=== PATIENT | male | born 1935 | race Caucasian/White ===

== ENCOUNTER 2019-01-23 09:53 | Outpatient (CLI) | payer MEDICARE ==
--- NOTE | 2019-01-23 11:21 | ULT ---
Bilateral renal ultrasound: HISTORY: Hematuria FINDINGS: The right kidney measures 11.7 cm in length and the left kidney measures 10.1 cm in length. There is a 1.8 cm cyst in the right kidney and a 1.1 cm cyst in the left kidney. The right cyst appears to represent a parapelvic cyst. No hydronephrosis is seen on either side. There is irregularity of the b ladder wall. IMPRESSION: 1. Bilateral renal cysts 2. Irregular bladder wall. Further evaluation with cystoscopy is recommended.
== END 2019-01-23 09:54 | disposition home or self-care (01) ==
LOC: BICULT 09:53
PROVIDERS: ATTEND Specialist
DX: R31.9 Hematuria, unspecified (principal); N28.1 Cyst of kidney, acquired; N32.89 Other specified disorders of bladder
CPT/HCPCS: 76770

== ENCOUNTER 2019-04-05 09:02 | Outpatient (CLI) | payer MEDICARE ==
[2019-04-05] MEDS ORDERED: Iopamidol 370 76% 100 ML VIAL ONE (10:49)
--- NOTE | 2019-04-05 11:52 | CT ---
CT ABDOMEN AND PELVIS WITH AND WITHOUT CONTRAST: Axial tomograms were obtained without IV enhancement. Postcontrast images were obtained with Iv enha ncement in portal venous phase and delayed venous phase. INDICATION: Malignant neoplasm of prostate. Hematuria. COMPARISON: Comparison is made to a prior CT abdomen and pelvis from 2002. FINDINGS: Review of the noncontrast CT shows a focal density in the left mid collecting structures which may re present a tiny calculus. The density, however, is less than expected for calcification. No other de finite urinary tract calculus. No hydronephrosis. Review of the urinary tract on postcontrast images shows a parapelvic cyst on the right measuring tiffani roximately 1.8 cm. Tiny cortical cyst anterior left kidney measures approximately 1 cm. There is an other 1 cm cortical cyst in the mid left renal cortex. There is a small exophytic cyst from the infe rior left kidney measuring 1.2 cm. There is an exophytic cyst from the inferior pole right kidney me asuring 1.2 cm. No enhancing renal mass identified. No hydronephrosis. Urinary bladder has irregular contour. Mild bladder wall thickening. Possible small diverticulum fr om the anterior superior bladder wall just to the left of midline. Prostate is mildly prominent and indenting the floor of the bladder. Seminal vesicles are prominent. The lung bases are clear. A small hepatic cyst in the mid right lobe of liver measuring approximately 1 cm is stable. Post cho lecystectomy changes. Spleen and pancreas unremarkable. Adrenal glands normal. Small bowel loops normal caliber. Prominent stool throughout the colon. Diverticulosis of the sigmoid. Aorta is calcified and tortuous. No aneurysmal dilatation. No adenopathy apparent. There is an anterior abdominal wall hernia in the midline of the upper abdomen which is new from the prior study of 2002. Anterior abdominal wall defect measures 2.6 cm width. A hernia sac in the subc utaneous tissues contain mesenteric fat measures 8 cm width in the axial plane. 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 There appears to be fusion at L2-3 with scoliotic curvature. IMPRESSION: 1. There are bilateral renal cystic lesions as described as described. Question small calculus in t he upper pole collecting structures of the left kidney. 2. Urinary bladder has irregularly shaped mild bladder wall thickening and small diverticulum as kiara cribed. 3. Small hepatic cyst. 4. Anterior abdominal wall hernia. 5. 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 POS: LEVI
--- NOTE | 2019-04-05 14:05 | NM ---
BONE SCAN: 04/05/19 Patient is given 31 millicuries of technetium MDP IV. Whole body skeletal images obtained. HISTORY: Prostate cancer. No comparison studies. There is abnormal patchy uptake in the lumbar spine with scoliotic curvature of the lumbar spine. Comparison made to today's CT scan which shows moderate to severe degenerative changes of the lumbar spine with partial fusion at L3-4. The activity seen on bone scan would correspond to this prominent degenerative change. No other abnormal osseous activity. IMPRESSION: There is abnormal areas of patchy activity throughout the lumbar spine most consistent with degenerat yeny change as noted on today's CT. POS: LEVI
== END 2019-04-05 09:03 | disposition home or self-care (01) ==
LOC: CT 09:02
PROVIDERS: ATTEND Urology
DX: C61 Malignant neoplasm of prostate (principal); N32.89 Other specified disorders of bladder; K76.89 Other specified diseases of liver; M48.061 Spinal stenosis, lumbar region without neurogenic claudication; M85.88 Other specified disorders of bone density and structure, other site
CPT/HCPCS: 74178; 78306; 82565; A9503; Q9967

== ENCOUNTER 2019-11-22 09:22 | Outpatient (CLI) | payer MEDICARE ==
[2019-11-22 11:47] LABS: INR-International Normal Ratio 0.9; Prothrombin Time 12.2 SEC (12.0-14.7)
[2019-11-22 11:48] LABS: PTT 28.5 SEC (22.9-36.1)
[2019-11-22 11:54] LABS: Bacteria/HPF None Seen HPF (None Seen); Bilirubin Negative (Negative); Blood, Urine 3+ (Negative); Clarity Clear (Clear); Glucose, Urine (Dipstick) Normal (Negative); Leukocyte Negative Leu/uL (Negative); Nitrite Negative (Negative); Protein, Urine (Dipstick) 20 mg/dL (Neg-Trace); RBC/HPF Greater than 50 HPF (0-3); Squamous Epithelial None Seen HPF (0-3); WBC/HPF 0-3 HPF (0-3)
[2019-11-22 11:56] LABS: Hemoglobin 12.7 g/dL (14.0-18.0); Mean Corpuscular HGB CONC 32.9 g/dL (32.0-36.0); Mean Platelet Volume 7.5 fL (7.4-10.4); Platelet Count 333 thou/uL (130-400); RBC Distribution Width 12.4 % (11.5-14.5); Red Blood Cell (RBC) Count 3.63 mill/uL (4.70-6.10); White Blood Cell (WBC) Count 6.1 thou/uL (4.8-10.8)
[2019-11-22 12:03] LABS: Anion Gap 11 mmol/L (10-20); BUN (Urea Nitrogen) 14 mg/dL (8.4-25.7); Calc. Creatinine Clearance 0 mL/min (70-130); Calcium 9.1 mg/dL (7.8-10.44); Carbon Dioxide 30 mmol/L (23-31); Chloride 102 mmol/L (98-107); Estimated GFR-MDRD 80; Glucose 124 mg/dL (83-110); Potassium 4.1 mmol/L (3.5-5.1); Sodium 139 mmol/L (136-145)
== END 2019-11-22 09:23 | disposition home or self-care (01) ==
LOC: LABBT 09:22
PROVIDERS: ATTEND Urology
DX: Z01.812 Encounter for preprocedural laboratory examination (principal); C61 Malignant neoplasm of prostate; M81.0 Age-related osteoporosis without current pathological fracture; R82.89 Other abnormal findings on cytological and histological examination of urine; N30.40 Irradiation cystitis without hematuria; R31.0 Gross hematuria
CPT/HCPCS: 80048; 81001; 85027; 85610; 85730; 87086

== ENCOUNTER 2019-11-30 06:43 | Day surgery (SDC) | payer MEDICARE ==
[2019-11-22 10:57] VITALS: BMI 22.5
[2019-11-30] MEDS ORDERED: Levofloxacin 500 mg/D5W 100 ml Premix Bag ONE (07:53)
[2019-11-30] MEDS ORDERED: Iothalamate Meglumine 60% 50 ML VIAL FS ONE (09:54)
[2019-11-30] MEDS ORDERED: Fentanyl 100 MCG/2 ML VIAL ONE (09:57)
[2019-11-30] MEDS ORDERED: SUGAMMADEX SODIUM 200 MG/2 ML VIAL ONE (10:06)
[2019-11-30] MEDS ORDERED: Glycopyrrolate 0.2 MG/ML 5 ML SYRINGE ONE (10:33)
[2019-11-30] MEDS ORDERED: PROPOFOL 200 MG/20 ML VIAL ONE (10:33)
[2019-11-30] MEDS ORDERED: Rocuronium Bromide 10 MG/ML (10ML VIAL) ONE (10:33)
[2019-11-30] MEDS ORDERED: Ondansetron PF 4 MG/2 ML Vial ONE (10:33)
[2019-11-30] MEDS ORDERED: Lidocaine 1% PF 5 ML VIAL ONE (10:33)
--- NOTE | 2019-11-30 11:24 | RAD ---
Retrograde Polygram: HISTORY: Bilateral stents, bladder cancer FINDINGS: The left ureter is injected initially with multiple filling defects which appear to represent air fiorella bles. Follow-up delayed injection demonstrates one persistent filling defect in the distal ureter. On the right side there is some dilatation of the right ureter from the upper midportion down to near the ureterovesicular junction with 2 separate ureteral moieties beginning at approximately L3. Right ureteral stent left in place. IMPRESSION: 2 partial right sided ureteral moieties superiorly with minimal dilatation of the mid and distal righ t ureter. Some filling defects in the left renal upper collecting system and ureter possibly air bubbles.
--- NOTE | 2019-11-30 11:55 | OP ---
DATE OF PROCEDURE: 11/30/2019 SERVICE: Urology. 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 POSTOPERATIVE DIAGNOSES: 1. 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 INDICATIONS FOR PROCEDURE: Mr. Randall is an 84-year-old white male who initially presented to me for hematuria. He did have a small mass at the opening of the right ureteral orifice with concerns for a possible early bladder cancer. I had recommended we resect this and stent the right ureter with bilateral retrograde pyelograms to evaluate his upper tracts at the time of the surgery. Risks and benefits of surgery were discussed and he has agreed to proceed forward. DESCRIPTION OF PROCEDURE: After identification of armband and verification of consent, the patient was brought back to the operating room where he underwent general anesthesia with endotracheal intubation. He was then placed in a dorsal lithotomy position and prepped and draped in the usual sterile fashion. After appropriate time-out, a lubricated 22-Syrian rigid cystoscope was introduced per urethra into the bladder. A full cystoscopy was performed, which demonstrated a trabeculated bladder with a mass at the right ureteral orifice, which was approximately 2 to 3 mm in size. No other lesions or masses were noted. Both ureters were in the orthotopic location otherwise. The left ureteral orifice was originally cannulated with a 5-Syrian Pollack catheter with the assistance of a 0.035 Sensor wire to guide the Pollack catheter in. A retrograde pyelogram was performed, which demonstrated a normal caliber left ureter and no filling defects within the renal pelvis. However, there was a persistent filling defect in the distal ureter. I suspected this was likely air bubbles and I watched this area for a while. However, the filling defect persisted. I elected to come back and perform a repeat retrograde on this side after we dealt with the right side, so the Pollack catheter was removed. The Sensor wire was then used to guide the Pollack catheter in on the right ureteral orifice and a retrograde pyelogram performed, which demonstrated a dilated distal right ureter, which then forked in a Y into a proximal duplicated system, both which the upper and lower pole moieties did not demonstrate any evidence of hydronephrosis or caliectasis. I suspect that the distal ureter was more dilated, probably from having both ureters convergent to a larger diameter ureter or there was a possibility for mild obstruction from the tumor at the distal ureteral orifice. The Pollack catheter was then removed and the cystoscope was switched out for a 26-Syrian resectoscope, which was brought in with the visual obturator. The visual obturator switched out for the bipolar resectoscope bladder loop. The tumor and right UO were resected and sent off for routine pathologic evaluation. Pinpoint cautery was then performed to try and cauterize a minor bleeding vessel that was adjacent to the ureteral orifice. The resectoscope was then removed and the 22-Syrian rigid cystoscope was brought back in. The right ureteral orifice was cannulated with a 0.035 Sensor wire up to the level of the renal pelvis in the upper pole moiety. A 6 x 26 double-J stent was advanced over the Sensor wire up to the level of the upper moiety and then the wire removed, leaving a good curl in the bladder and a partial curl within the upper pole moiety of the kidney. There was minimal bleeding noted at the resection bed on the right ureter. I satisfied that the tumor was removed from the right. Attention was turned back to the left side, which another retrograde pyelogram was performed with a 5-Syrian Pollack catheter. This demonstrated that the filling defect was again persist in the same location; however, did appear to move with the retrograde, indicating these were likely air bubbles. However, I became concerned that this was possibly a mobile polyp or a polypoid type tumor that could give a false appearance of movement. Therefore, I elected to go ahead and proceed with ureteroscopy to evaluate this area. A Sensor wire was advanced through the left ureteral orifice up to the level of the kidney and then the Pollack catheter removed. The cystoscope was then also removed and the Sensor wire affixed to the drapes as a safety wire. A semi-rigid ureteroscope was brought in alongside the sensor wire into the bladder and an Amplatz Super Stiff wire was then used to cannulate the distal ureter in order to guide the ureteroscope into the distal ureter. Ureteroscopy was carried out until the mid ureter and the entire ureter mucosa was evaluated both on the way in and on the way out and no tumor was identified. There was an air bubble trapped between 2 concentric folds within the urothelial mucosa, which is likely what was visualized as the filling defect. I satisfied this was just an air bubble and there were no mucosal abnormality consistent with cancer. The ureteroscope was withdrawn. Since the ureter had become dilated at the ureteral orifice, I did elect to leave a stent in the same side to avoid stricturing, spasms, edema, or pain postoperatively. The cystoscope was back-loaded over the Sensor wire back into the bladder and a 6 x 26 double-J stent was advanced on this side up to the level of renal pelvis. The wire was removed, leaving a good curl in the bladder and a partial curl in the kidney. The bladder was then drained and the cystoscope was removed after evaluating the right resection bed again, at which point no bleeding was noted there either. The cystoscope was then completely removed after the bladder was drained. The patient was then taken out of positioning, awakened, and taken to PACU for recovery in stable condition. COMPLICATIONS: None. ESTIMATED BLOOD LOSS: Minimal. RETAINED TUBES AND DRAINS: Bilateral 6 x 26 double-J stents. SPECIMENS: Right ureteral orifice with bladder tumor. DISPOSITION: The patient will be discharged home and follow up with me in approximately 2 weeks for a cystoscopy and bilateral stent removal, at which point we will then go over his pathology and discuss followup care thereafter. Job ID: [id number]
[2019-11-30] MEDS ORDERED: Oxybutynin 5 MG TAB ONE (13:30)
[2019-11-30] MEDS ORDERED: B & O ONE (13:38)
[2019-11-30] MEDS ORDERED: HYDROcodone/Acetaminophen 5/325 mg Tablet ONE (15:10)
--- NOTE | 2019-12-04 06:13 | PQF ---
[facility] POST DISCHARGE CLINICAL DOCUMENTATION IMPROVEMENT CLARIFICATION FORM l Todays Date: 12/01/19 l Patients Name BRODERICK HAYWOOD l l Admit Date 11/30/19 l Disch Date 11/30/19 Angular Developer Name Bipin Redmond Email: [email or web address] Cell: [phone] To be completed by Angular Developer: Present Clinical Indicators - Signs / Symptoms Results and Location in Medical Record [ ] Documentation of: [ ] [ ] Documentation of: [ ] [ ] Documentation of: [ ] [ ] Documentation of: [ ] [ ] Risks [ ] [ ] [ ] Treatment [ ] Bladder tumor right ureteral orrifice Query for size of excised right bladder tumor [ ] [ ] To be completed by Physician: RELL SOTELO The documentation in this patients record requires clarification to ensure coding compliance and accuracy. Check the appropriate box and include in your discharge summary. [ ] [X ] __This is already specified in the OP note. 2-3 mm [ ] [ ] Please check this box if this does not apply to this patient [ ] Unable to determine [ ] Other diagnosis: Review the following information and exercise your independent professional judgment in responding to the clarification. Based upon the clinical findings, risk factors, and treatment, please clarify if you are treating one of the above probable or suspected diagnoses. Physician Signature: ____Rell Conde____ Date__12/07/19___ Time__18:38_ MTDD
== END 2019-11-30 16:17 | disposition home or self-care (01) ==
LOC: SDC 06:43
PROVIDERS: ATTEND Urology
PROC: 0TBB8ZZ Excision of Bladder, Via Natural or Artificial Opening Endoscopic (ICD-10-PCS; principal; 2019-11-30)
PROC: BT141ZZ Fluoroscopy of Kidneys, Ureters and Bladder using Low Osmolar Contrast (ICD-10-PCS; 2019-11-30)
PROC: 0T768DZ Dilation of Right Ureter with Intraluminal Device, Via Natural or Artificial Opening Endoscopic (ICD-10-PCS; 2019-11-30)
DX: N32.89 Other specified disorders of bladder (principal); Q62.5 Duplication of ureter; N30.41 Irradiation cystitis with hematuria; C61 Malignant neoplasm of prostate; I10 Essential (primary) hypertension; E78.00 Pure hypercholesterolemia, unspecified; F17.210 Nicotine dependence, cigarettes, uncomplicated; M81.0 Age-related osteoporosis without current pathological fracture; Z79.82 Long term (current) use of aspirin; Z79.899 Other long term (current) drug therapy; Z95.0 Presence of cardiac pacemaker
CPT/HCPCS: 51798; 52005; 52224; 52332; 74420; 88305; C1758; C1769; J1956; J2001; J2405; J2704; J3010; J7620

== ENCOUNTER 2019-12-25 11:37 | Day surgery (SDC) | payer MEDICARE ==
[~2019-12-25 11:37] MED LIST: Glycopyrrolate 0.2 MG/ML 5 ML SYRINGE ONE; Lidocaine 1% PF 5 ML VIAL ONE; Ondansetron PF 4 MG/2 ML Vial ONE; PROPOFOL 200 MG/20 ML VIAL ONE; Rocuronium Bromide 10 MG/ML (10ML VIAL) ONE; Succinylcholine Chloride 20 MG/ML 10 ml SYRINGE FS ONE
[2019-12-25] MEDS ORDERED: Midazolam HCl 2 mg/2 ml Vial ONE (11:56)
[2019-12-25] MEDS ORDERED: Fentanyl 100 MCG/2 ML VIAL ONE ×2 (11:56→13:50)
[2019-12-25] MEDS ORDERED: cefTRIAXone\\ROCEPHIN 1 GM VIAL ONE (12:09)
[2019-12-25] MEDS ORDERED: Sodium Chloride 0.9% 100 ML ONE (12:09)
[2019-12-25] MEDS ORDERED: B & O ONE (12:24)
[2019-12-25 12:41] LABS: #Basophils 0.1 thou/uL (0.0-0.2); #Eosinphils 0.1 thou/uL (0.0-0.7); #Monocytes 0.8 thou/uL (0.11-0.59); #Neutrophils 8.7 thou/uL (1.40-6.50); %Basophils 0.5 % (0.0-1.0); %Eosinophils 0.8 % (0.0-10.0); %Lymphocytes 9.6 % (21.0-51.0); %Monocytes 7.2 % (0.0-10.0); %Neutrophils 81.9 % (42.0-75.0); Hemoglobin 9.4 g/dL (14.0-18.0); Mean Corpuscular HGB CONC 32.8 g/dL (32.0-36.0); Mean Corpuscular Hemoglobin 33.9 pg (27.0-31.0); Mean Platelet Volume 6.1 fL (7.4-10.4); Platelet Count 442 thou/uL (130-400); RBC Distribution Width 11.9 % (11.5-14.5); Red Blood Cell (RBC) Count 2.77 mill/uL (4.70-6.10); White Blood Cell (WBC) Count 10.6 thou/uL (4.8-10.8)
[2019-12-25 12:50] LABS: INR-International Normal Ratio 0.9; PTT 24.1 SEC (22.9-36.1); Prothrombin Time 12.6 SEC (12.0-14.7)
[2019-12-25 13:04] LABS: Anion Gap 11 mmol/L (10-20); BUN (Urea Nitrogen) 10 mg/dL (8.4-25.7); Calc. Creatinine Clearance 0 mL/min (70-130); Calcium 8.9 mg/dL (7.8-10.44); Carbon Dioxide 31 mmol/L (23-31); Chloride 98 mmol/L (98-107); Estimated GFR-MDRD 88; Glucose 87 mg/dL (83-110); Potassium 3.8 mmol/L (3.5-5.1); Sodium 136 mmol/L (136-145)
[2019-12-25] MEDS ORDERED: Phenazopyridine HCl 97.5 MG TABLET ONE (14:06)
[2019-12-25] MEDS ORDERED: HYDROcodone/Acetaminophen 5/325 mg Tablet ONE (14:12)
--- NOTE | 2019-12-25 14:39 | OP ---
DATE OF PROCEDURE: 12/25/2019 SERVICE: Urology. 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 POSTOPERATIVE DIAGNOSIS: Radiation cystitis with gross hematuria. PROCEDURE PERFORMED: Cystoscopy with fulguration of bleeding areas. INDICATIONS FOR PROCEDURE: Mr. Randall is an 84-year-old white male with history of positive cytology and history of prostate cancer. He had undergone cystoscopy in the office demonstrating a lesion at his right ureteral orifice, which was concerning for a possible tumor. This area was resected. The patient had a stenting afterwards, which was subsequently removed. Unfortunately, due to his radiation cystitis, the patient had multiple episodes of gross hematuria. We removed his stents at the time that they were indicated to be removed, and the hematuria persisted. The patient had a catheter placed and had 2 separate visits to the ER for clot retention. Ultimately, his hematuria appears to mostly have stopped at this point, but he keeps having ongoing episodes of bleeding. A cystoscopy was performed in the office, which demonstrated ongoing bleeding of the bladder neck in the previous resection bed. I recommend he come to the operating room as visualization of the ureteral orifice was difficult for office-based cystoscopy and fulguration without damaging his ureteral orifice. Risks and benefits of the procedure have already been discussed, and he has agreed to proceed forward. DESCRIPTION OF PROCEDURE: After identification of armband and verification of consent, the patient was brought back to the operating room, where he underwent general anesthesia with an LMA. He was then placed in dorsal lithotomy position and prepped and draped in usual sterile fashion. After appropriate time-out, a 26-Belarusian resectoscope sheath with visual obturator was passed through the urethra into the patient's bladder. The prostate was extremely hyperemic with some dilated vessels and some bleeding. The bladder neck had a few areas of mild bleeding, and there was 1 area of bleeding that was occurring in the area of the resection bed near the bladder neck. Ureter was identified and found to be completely patent. A few areas on trabeculations on the right lateral bladder wall, posterior bladder wall, and bladder neck, especially at the site of the previous resection site were fulgurated using the bipolar gyrus resectoscope bladder loop taking great care to avoid injury to the ureteral orifice. Upon completion, all areas within the bladder appeared to not be bleeding anymore. The bladder was totally decompressed and refilled. Any points that oozed even a little bit were re-cauterized until there was absolutely no bleeding identified with the bladder under decompression or while filled. Pull-back into his prostate demonstrated bleeding on the right lateral prostate wall. These areas were extensively fulgurated until there was no bleeding identified. Final cystoscopy in the prostate did not demonstrate any additional bleeding. The resectoscope sheath was then removed. I elected not to place the catheter in the patient as I suspect given the friability of his blood vessels and significant inflammation already in his posterior bladder wall that there would be a high risk for stirring up ongoing bleeding from the catheter balloon and movement. As such, I will keep the patient without a catheter and ensure that he can void, and we will monitor his progress thereafter. COMPLICATIONS: None. ESTIMATED BLOOD LOSS: Minimal. RETAINED TUBES AND DRAINS: None. SPECIMENS: None. DISPOSITION: The patient will be discharged home after a void trial. He will then be brought back to the office on an outpatient basis for ongoing followup and investigation of his positive cytology. Job ID: [id number]
[2019-12-25] MEDS ORDERED: Morphine 2 MG/ML SYRINGE ONE (15:17)
== END 2019-12-25 16:38 | disposition home or self-care (01) ==
LOC: SDC 11:37
PROVIDERS: ATTEND Urology
PROC: 0W3R8ZZ Control Bleeding in Genitourinary Tract, Via Natural or Artificial Opening Endoscopic (ICD-10-PCS; principal; 2019-12-25)
DX: N30.41 Irradiation cystitis with hematuria (principal); N32.89 Other specified disorders of bladder; C61 Malignant neoplasm of prostate; R82.89 Other abnormal findings on cytological and histological examination of urine; Z95.0 Presence of cardiac pacemaker; Z79.899 Other long term (current) drug therapy
CPT/HCPCS: 36415; 80048; 85025; 85610; 85730; 93005; 93010; J0696; J2001; J2250; J2270; J2405; J2704; J3010; J3490

== ENCOUNTER 2020-01-18 12:36 | Outpatient (CLI) | payer MEDICARE ==
--- NOTE | 2020-01-18 14:55 | RAD ---
CHEST 2 VIEWS: HISTORY: Mixed hyperlipidemia. COMPARISON: 12/31/2013. FINDINGS: Borderline hyperinflation. Increased linear and interstitial markings bilaterally without confluent pneumonia or overt edema. Left transvenous pacemaker. IMPRESSION: 1. Mild hyperinflation and chronic lung changes. 2. No significant acute intrathoracic disease. 3. Left transvenous pacemaker. 4. Atherosclerosis of the aorta. POS: RRE
== END 2020-01-18 12:37 | disposition home or self-care (01) ==
LOC: SCSRAD 12:36
PROVIDERS: ATTEND Nurse Practitioner Family
DX: E78.2 Mixed hyperlipidemia (principal); I70.0 Atherosclerosis of aorta; R91.8 Other nonspecific abnormal finding of lung field; Z95.0 Presence of cardiac pacemaker
CPT/HCPCS: 71046

== ENCOUNTER 2021-01-14 10:57 | Outpatient (CLI) | payer MEDICARE, OTHER ==
[2021-01-14 12:12] LABS: Mean Corpuscular HGB CONC 32.4 g/dL (32.0-36.0); Mean Corpuscular Hemoglobin 30.8 pg (27.0-33.0); Mean Corpuscular Volume 95.1 fl (81.2-95.1); Mean Platelet Volume 9.8 fl (7.4-10.4); Platelet Count 273 10x3/uL (150-450); RBC Distribution Width 17.2 % (11.5-14.5); Red Blood Cell (RBC) Count 3.25 10x6/uL (4.32-5.72); White Blood Cell (WBC) Count 7.2 10x3/uL (3.5-10.5)
[2021-01-14 12:13] LABS: Bilirubin Neg (Negative); Blood, Urine 150 (Negative); Clarity Clear (Clear); Glucose, Urine (Dipstick) Normal (Negative); Ketone, Urine Negative (Negative); Leukocyte 25 (Negative); Nitrite Negative (Negative); Protein, Urine (Dipstick) 15 mg/dl (Neg-Trace)
[2021-01-14 12:21] LABS: PTT 26.2 sec (22.0-33.0); Prothrombin Time 10.6 sec (9.5-12.1)
[2021-01-14 12:35] LABS: Anion Gap 13 mmol/L (10-20); BUN (Urea Nitrogen) 16 mg/dL (8.4-25.7); Calc. Creatinine Clearance 0 mL/min (70-130); Calcium 8.7 mg/dL (7.8-10.44); Carbon Dioxide 28 mmol/L (23-31); Chloride 99 mmol/L (98-107); Glucose 92 mg/dL (83-110); Potassium 3.6 mmol/L (3.5-5.1); Sodium 136 mmol/L (136-145)
[2021-01-14 14:16] LABS: Bacteria/HPF None Seen HPF (None Seen); RBC/HPF 21-50 HPF (0-3); Squamous Epithelial 0-3 HPF (0-3); WBC/HPF 0-3 HPF (0-3)
[2021-01-14 22:35] LABS: SARS-CoV-2 PCR by NAA Not Detected (NotDetected)
== END 2021-01-14 10:58 | disposition home or self-care (01) ==
LOC: LABBT 10:57
PROVIDERS: ATTEND Urology
DX: Z01.818 Encounter for other preprocedural examination (principal); R31.0 Gross hematuria; N30.40 Irradiation cystitis without hematuria; C61 Malignant neoplasm of prostate; R82.89 Other abnormal findings on cytological and histological examination of urine; R35.0 Frequency of micturition; Z20.822 Contact with and (suspected) exposure to COVID-19
CPT/HCPCS: 80048; 81001; 85027; 85610; 85730; 87086; 93005; U0003; U0005; 87635; 93010

== ENCOUNTER 2021-01-17 06:07 | Day surgery (SDC) | payer MEDICARE, OTHER ==
[2021-01-16 11:50] VITALS: BMI 21.7
[2021-01-17] MEDS ORDERED: Levofloxacin 500 mg/D5W 100 ml Premix Bag ONE (06:19)
[2021-01-17] MEDS ORDERED: B & O ONE (06:44)
[2021-01-17] MEDS ORDERED: Fentanyl 100 MCG/2 ML VIAL ONE (07:15)
[2021-01-17] MEDS ORDERED: Dexamethasone 20 MG/5 ML VIAL ONE (07:44)
[2021-01-17] MEDS ORDERED: Ondansetron PF 4 MG/2 ML Vial ONE (07:44)
[2021-01-17] MEDS ORDERED: PROPOFOL 200 MG/20 ML VIAL ONE (07:44)
[2021-01-17] MEDS ORDERED: hydrALAZINE 20 MG/ML VIAL ONE (09:34)
[2021-01-17] MEDS ORDERED: HYDROcodone/Acetaminophen 5/325 mg Tablet ONE (09:44)
== END 2021-01-17 10:40 | disposition home or self-care (01) ==
LOC: SDC 06:07
PROVIDERS: ATTEND Urology
PROC: 0TBB8ZX Excision of Bladder, Via Natural or Artificial Opening Endoscopic, Diagnostic (ICD-10-PCS; principal; 2021-01-17)
DX: N30.80 Other cystitis without hematuria (principal); I10 Essential (primary) hypertension; J44.9 Chronic obstructive pulmonary disease, unspecified; Z85.46 Personal history of malignant neoplasm of prostate; Z85.51 Personal history of malignant neoplasm of bladder; Z79.899 Other long term (current) drug therapy; Z95.0 Presence of cardiac pacemaker
CPT/HCPCS: 88305; J0360; J1100; J1956; J2405; J2704; J3010

== ENCOUNTER 2021-01-27 15:33 | Outpatient (CLI) | payer MEDICARE, OTHER | END 2021-01-27 15:34 | disposition home or self-care (01) | LOC: BICULT 15:33 | PROVIDERS: ATTEND Urology | DX: N32.89 Other specified disorders of bladder (principal); N28.1 Cyst of kidney, acquired | CPT/HCPCS: 76770 ==

== ENCOUNTER 2021-07-28 07:34 | Inpatient (IN) | payer MEDICARE, OTHER ==
[2021-07-28 09:42] VITALS: BMI 20.9
[2021-07-28] MEDS ORDERED: Iopamidol 370 76% 100 ML VIAL ONE (13:39)
[2021-07-28] MEDS ORDERED: Acetaminophen 650 MG Suppository PR PRN (13:48)
[2021-07-28] MEDS ORDERED: cloNIDine 0.2mg/24 Hour PATCH TD SCH (14:00)
[2021-07-28] MEDS: Dextrose 5 %-0.45 % NaCl 1,000 ML IV SCH (14:50)
[2021-07-28] MEDS: Ondansetron HCl/PF 8 MG in Sodium Chloride 0.9% 50 ML IVPB SCH (19:39)
[2021-07-28] MEDS: hydrALAZINE 20 MG/ML VIAL SLOW IVP PRN (22:40)
[2021-07-29] MEDS: Dextrose 5 %-0.45 % NaCl 1,000 ML IV SCH ×2 (00:14→09:15)
[2021-07-29] MEDS: Ondansetron HCl/PF 8 MG in Sodium Chloride 0.9% 50 ML IVPB SCH ×4 (00:14→18:42)
[2021-07-29 06:20] LABS: #Lymphocytes 1.3 thou/uL (1.20-3.40); #Neutrophils 8.2 thou/uL (1.40-6.50); %Basophils 0.3 % (0.0-1.0); %Eosinophils 0.5 % (0.0-10.0); %Lymphocytes 12.6 % (21.0-51.0); %Monocytes 9.5 % (0.0-10.0); %Neutrophils 77.1 % (42.0-75.0); Hemoglobin 11.7 g/dL (14.0-18.0); Mean Corpuscular HGB CONC 31.8 g/dL (32.0-36.0); Mean Corpuscular Hemoglobin 32.4 pg (27.0-31.0); Mean Platelet Volume 6.6 fL (7.4-10.4); Platelet Count 371 thou/uL (130-400); RBC Distribution Width 13.7 % (11.5-14.5); Red Blood Cell (RBC) Count 3.61 mill/uL (4.70-6.10); White Blood Cell (WBC) Count 10.6 thou/uL (4.8-10.8)
[2021-07-29 06:42] LABS: ALT (SGPT) 47 U/L (8-55); AST (SGOT) 39 U/L (5-34); Albumin 2.9 g/dL (3.4-4.8); Alkaline Phosphatase 532 U/L (40-110); Anion Gap 11 mmol/L (10-20); BUN (Urea Nitrogen) 11 mg/dL (8.4-25.7); Bilirubin, Total 0.3 mg/dL (0.2-1.2); Calc. Creatinine Clearance 64 mL/min (70-130); Calcium 8.6 mg/dL (7.8-10.44); Carbon Dioxide 27 mmol/L (23-31); Chloride 100 mmol/L (98-107); Globulin 3.4 g/dL (2.4-3.5); Glucose 99 mg/dL (83-110); Potassium 3.8 mmol/L (3.5-5.1); Protein, Total 6.3 g/dL (5.8-8.1); Sodium 134 mmol/L (136-145)
[2021-07-29] MEDS: hydrALAZINE 20 MG/ML VIAL SLOW IVP PRN ×2 (08:12→20:27)
[2021-07-29] MEDS: Nicotine 14 MG PATCH TOP SCH ×2 (08:12→08:29)
[2021-07-29] MEDS ORDERED: Pantoprazole 40 MG VIAL IVP SCH (09:00)
[2021-07-29] MEDS: Dexamethasone 4 MG TAB PO SCH ×3 (11:46→20:27)
[2021-07-29] MEDS: Atorvastatin Calcium 10 MG TAB PO SCH (20:27)
[2021-07-30] MEDS: Ondansetron HCl/PF 8 MG in Sodium Chloride 0.9% 50 ML IVPB SCH ×5 (00:29→23:49)
[2021-07-30 05:09] LABS: #Monocytes 0.8 thou/uL (0.11-0.59); #Neutrophils 9.9 thou/uL (1.40-6.50); %Basophils 0.1 % (0.0-1.0); %Lymphocytes 8.6 % (21.0-51.0); %Monocytes 6.9 % (0.0-10.0); %Neutrophils 84.4 % (42.0-75.0); Hemoglobin 11.7 g/dL (14.0-18.0); Mean Corpuscular HGB CONC 33.8 g/dL (32.0-36.0); Mean Platelet Volume 6.5 fL (7.4-10.4); Platelet Count 382 thou/uL (130-400); RBC Distribution Width 13.6 % (11.5-14.5); Red Blood Cell (RBC) Count 3.46 mill/uL (4.70-6.10); White Blood Cell (WBC) Count 11.7 thou/uL (4.8-10.8)
[2021-07-30 05:27] LABS: Anion Gap 11 mmol/L (10-20); BUN (Urea Nitrogen) 16 mg/dL (8.4-25.7); Calc. Creatinine Clearance 66 mL/min (70-130); Calcium 8.7 mg/dL (7.8-10.44); Carbon Dioxide 28 mmol/L (23-31); Chloride 100 mmol/L (98-107); Glucose 102 mg/dL (83-110); Potassium 4.1 mmol/L (3.5-5.1); Sodium 135 mmol/L (136-145)
[2021-07-30 08:14] LABS: Total PSA 0.4 ng/mL (0.0-4.0)
[2021-07-30] MEDS ORDERED: LATANOPROSTENE BUNOD EA EYE SCH (09:00)
[2021-07-30] MEDS: Chlorthalidone 25 MG TAB PO SCH (09:52)
[2021-07-30] MEDS: Lisinopril 20 MG TAB PO SCH (09:52)
[2021-07-30] MEDS: Dexamethasone 4 MG TAB PO SCH ×3 (09:52→20:11)
[2021-07-30] MEDS: Nicotine 14 MG PATCH TOP SCH (11:49)
[2021-07-30] MEDS: hydrALAZINE 20 MG/ML VIAL SLOW IVP PRN (17:28)
[2021-07-30] MEDS ORDERED: hydrALAZINE 25 MG TAB PO SCH (18:00)
[2021-07-30] MEDS: Atorvastatin Calcium 10 MG TAB PO SCH (20:08)
[2021-07-30] MEDS: hydrALAZINE 25 MG TAB PO SCH (21:11)
[2021-07-31 05:23] LABS: #Lymphocytes 1.2 thou/uL (1.20-3.40); #Monocytes 0.9 thou/uL (0.11-0.59); #Neutrophils 10.2 thou/uL (1.40-6.50); %Basophils 0.3 % (0.0-1.0); %Eosinophils 0.1 % (0.0-10.0); %Lymphocytes 9.4 % (21.0-51.0); %Monocytes 7.2 % (0.0-10.0); %Neutrophils 83.1 % (42.0-75.0); Mean Corpuscular HGB CONC 32.6 g/dL (32.0-36.0); Mean Corpuscular Hemoglobin 33.4 pg (27.0-31.0); Mean Platelet Volume 6.6 fL (7.4-10.4); Platelet Count 347 thou/uL (130-400); RBC Distribution Width 13.7 % (11.5-14.5); Red Blood Cell (RBC) Count 3.58 mill/uL (4.70-6.10); White Blood Cell (WBC) Count 12.3 thou/uL (4.8-10.8)
[2021-07-31 05:45] LABS: Anion Gap 11 mmol/L (10-20); BUN (Urea Nitrogen) 19 mg/dL (8.4-25.7); Calc. Creatinine Clearance 69 mL/min (70-130); Calcium 9.1 mg/dL (7.8-10.44); Carbon Dioxide 28 mmol/L (23-31); Chloride 100 mmol/L (98-107); Glucose 93 mg/dL (83-110); Potassium 4.2 mmol/L (3.5-5.1); Sodium 135 mmol/L (136-145)
[2021-07-31] MEDS: hydrALAZINE 25 MG TAB PO SCH ×2 (06:15→14:37)
[2021-07-31] MEDS: Ondansetron HCl/PF 8 MG in Sodium Chloride 0.9% 50 ML IVPB SCH ×3 (06:16→17:19)
[2021-07-31] MEDS: Lisinopril 20 MG TAB PO SCH (08:05)
[2021-07-31] MEDS: Dexamethasone 4 MG TAB PO SCH ×3 (08:05→19:32)
[2021-07-31] MEDS: Nicotine 14 MG PATCH TOP SCH ×2 (08:05→08:07)
[2021-07-31] MEDS: Chlorthalidone 25 MG TAB PO SCH (08:10)
[2021-07-31 15:59] VITALS: BP 158/75; TEMP 97.5
[2021-08-04] MEDS ORDERED: cloNIDine 0.2mg/24 Hour PATCH TD SCH (09:00)
== END 2021-07-31 19:45 | disposition home or self-care (01) | DRG 54 ==
LOC: 3SE 07:34 → NEURO 10:55
PROVIDERS: ADMIT Specialist; ATTEND Specialist
DX: C71.9 Malignant neoplasm of brain, unspecified (principal); G93.5 Compression of brain; G93.6 Cerebral edema; E44.1 Mild protein-calorie malnutrition; G91.1 Obstructive hydrocephalus; Z20.822 Contact with and (suspected) exposure to COVID-19; K21.9 Gastro-esophageal reflux disease without esophagitis; E78.5 Hyperlipidemia, unspecified; E78.00 Pure hypercholesterolemia, unspecified; I10 Essential (primary) hypertension; E86.0 Dehydration; J44.9 Chronic obstructive pulmonary disease, unspecified; F17.210 Nicotine dependence, cigarettes, uncomplicated; Z85.46 Personal history of malignant neoplasm of prostate; Z90.49 Acquired absence of other specified parts of digestive tract; Z79.82 Long term (current) use of aspirin; Z79.899 Other long term (current) drug therapy; Z95.0 Presence of cardiac pacemaker; Z68.21 Body mass index [BMI] 21.0-21.9, adult
CPT/HCPCS: 36415; 70450; 70553; 71260; 74177; 80048; 80053; 81003; 81015; 82553; 84153; 84154; 84484; 85025; 93005; 94640; 96374; C9113; J0360; J1100; J2405; J8540; Q9967; U0002

== ENCOUNTER 2021-08-11 14:43 | Outpatient (CLI) | payer MEDICARE, OTHER ==
[2021-08-11 15:48] LABS: Hemoglobin 12.1 g/dL (13.5-17.5); Mean Corpuscular HGB CONC 33.3 g/dL (32.0-36.0); Mean Corpuscular Hemoglobin 32.3 pg (27.0-33.0); Mean Corpuscular Volume 96.8 fl (81.2-95.1); Mean Platelet Volume 9.2 fl (7.4-10.4); Platelet Count 379 10x3/uL (150-450); Red Blood Cell (RBC) Count 3.75 10x6/uL (4.32-5.72); White Blood Cell (WBC) Count 17.5 10x3/uL (3.5-10.5)
[2021-08-11 16:16] LABS: Anion Gap 14 mmol/L (10-20); BUN (Urea Nitrogen) 23 mg/dL (8.4-25.7); Calc. Creatinine Clearance 0 mL/min (70-130); Calcium 8.8 mg/dL (7.8-10.44); Carbon Dioxide 27 mmol/L (23-31); Chloride 99 mmol/L (98-107); Glucose 131 mg/dL (83-110); Potassium 4.5 mmol/L (3.5-5.1); Sodium 135 mmol/L (136-145)
[2021-08-12 13:30] LABS: SARS-CoV-2 PCR by NAA Not Detected (NotDetected)
== END 2021-08-11 14:44 | disposition home or self-care (01) ==
LOC: LABBT 14:43
PROVIDERS: ATTEND Neurological Surgery
DX: Z01.818 Encounter for other preprocedural examination (principal); D43.2 Neoplasm of uncertain behavior of brain, unspecified; Z20.822 Contact with and (suspected) exposure to COVID-19
CPT/HCPCS: 80048; 85027; 93005; U0003; U0005; 93010

== ENCOUNTER 2021-08-12 18:20 | Inpatient (IN) | payer MEDICARE, OTHER ==
[2021-08-12 19:22] LABS: #Lymphocytes 0.8 thou/uL (1.20-3.40); #Monocytes 0.7 thou/uL (0.11-0.59); #Neutrophils 11.9 thou/uL (1.40-6.50); %Basophils 0.2 % (0.0-1.0); %Eosinophils 0.2 % (0.0-10.0); %Monocytes 4.9 % (0.0-10.0); %Neutrophils 88.7 % (42.0-75.0); Hemoglobin 11.9 g/dL (14.0-18.0); Mean Corpuscular HGB CONC 32.6 g/dL (32.0-36.0); Mean Corpuscular Hemoglobin 33.6 pg (27.0-31.0); Mean Platelet Volume 6.8 fL (7.4-10.4); Platelet Count 302 thou/uL (130-400); RBC Distribution Width 13.8 % (11.5-14.5); Red Blood Cell (RBC) Count 3.54 mill/uL (4.70-6.10); White Blood Cell (WBC) Count 13.4 thou/uL (4.8-10.8)
[2021-08-12 19:33] LABS: INR-International Normal Ratio 0.9; Prothrombin Time 12.3 sec (12.0-14.7)
[2021-08-12 19:34] LABS: PTT 23.8 sec (22.9-36.1)
[2021-08-12 19:42] LABS: Bilirubin Negative (Negative); Blood, Urine Negative (Negative); Clarity Clear (Clear); Glucose, Urine (Dipstick) Normal (Negative); Ketone, Urine Negative (Negative); Leukocyte Negative Leu/uL (Negative); Nitrite Negative (Negative); Protein, Urine (Dipstick) Negative (Neg-Trace); Specific Gravity, Urine 1.018 (1.002-1.036); Urobilinogen Normal mg/dL (Less than 2)
[2021-08-12 19:43] LABS: ALT (SGPT) 72 U/L (8-55); AST (SGOT) 50 U/L (5-34); Albumin 3.1 g/dL (3.4-4.8); Alkaline Phosphatase 382 U/L (40-110); Anion Gap 12 mmol/L (10-20); BUN (Urea Nitrogen) 20 mg/dL (8.4-25.7); Bilirubin, Total 0.3 mg/dL (0.2-1.2); Calc. Creatinine Clearance 0 mL/min (70-130); Calcium 9.1 mg/dL (7.8-10.44); Carbon Dioxide 26 mmol/L (23-31); Chloride 99 mmol/L (98-107); Globulin 3.3 g/dL (2.4-3.5); Glucose 117 mg/dL (83-110); Potassium 4.5 mmol/L (3.5-5.1); Protein, Total 6.4 g/dL (5.8-8.1); Sodium 132 mmol/L (136-145)
[2021-08-12] MEDS ORDERED: cloNIDine 0.1 MG TAB ONE (19:57)
[2021-08-12] MEDS ORDERED: hydrALAZINE 20 MG/ML VIAL SLOW IVP PRN (19:57)
[2021-08-12] MEDS ORDERED: Dextrose 5% in Water 1,000 ML IV PRN (19:57)
[2021-08-12] MEDS ORDERED: Dextrose 50% Abboject 50 ML SYRINGE SLOW IVP PRN (19:57)
[2021-08-12] MEDS ORDERED: Ondansetron PF 4 MG/2 ML Vial IVP PRN (19:57)
[2021-08-12] MEDS ORDERED: Sodium Chloride 0.9% 1,000 ML IV SCH (20:00)
[2021-08-12] MEDS ORDERED: traMADol HCl 50 MG TAB PO PRN ×2 (20:01)
[2021-08-12] MEDS ORDERED: Cyclobenzaprine 10 MG TAB PO PRN (20:01)
[2021-08-12 20:04] LABS: Magnesium 1.6 mg/dL (1.6-2.6); Phosphorus 2.9 mg/dL (2.3-4.7)
[2021-08-12] MEDS ORDERED: Morphine 4 MG/ML VIAL SLOW IVP PRN (20:05)
[2021-08-12] MEDS ORDERED: Ibuprofen 200 MG TAB PO PRN (20:09)
[2021-08-12] MEDS ORDERED: Magnesium 2 GM/50 ML 2 GM in Premix Bag 1 BAG IVPB SCH (20:15)
[2021-08-12] MEDS ORDERED: Sodium Phosphate 30 MMOL in Sodium Chloride 0.9% 250 ML 250 ML IVPB SCH (20:30)
[2021-08-12] MEDS ORDERED: Dexamethasone 4 MG TAB PO SCH (21:00)
[2021-08-12] MEDS ORDERED: cloNIDine 0.1 MG TAB PO SCH ×2 (21:00)
[2021-08-12] MEDS ORDERED: Lisinopril 20 MG TAB PO SCH (21:00)
[2021-08-12] MEDS: Senokot S 8.6-50 MG TAB PO SCH (22:37)
[2021-08-12] MEDS: Acetaminophen 500 MG TAB PO SCH (22:38)
[2021-08-12] MEDS: Famotidine/PF 20 mg/2ml Vial SLOW IVP SCH (22:38)
[2021-08-12 23:21] VITALS: BMI 21.2
[2021-08-13] MEDS: Acetaminophen 500 MG TAB PO SCH ×4 (04:52→20:15)
[2021-08-13 06:11] LABS: #Lymphocytes 0.7 thou/uL (1.20-3.40); #Neutrophils 14.8 thou/uL (1.40-6.50); %Monocytes 6.1 % (0.0-10.0); %Neutrophils 89.9 % (42.0-75.0); Hemoglobin 11.6 g/dL (14.0-18.0); Mean Corpuscular HGB CONC 32.5 g/dL (32.0-36.0); Mean Corpuscular Hemoglobin 33.4 pg (27.0-31.0); Mean Platelet Volume 6.3 fL (7.4-10.4); Platelet Count 320 thou/uL (130-400); RBC Distribution Width 13.5 % (11.5-14.5); Red Blood Cell (RBC) Count 3.48 mill/uL (4.70-6.10); White Blood Cell (WBC) Count 16.5 thou/uL (4.8-10.8)
[2021-08-13 06:39] LABS: Anion Gap 11 mmol/L (10-20); BUN (Urea Nitrogen) 19 mg/dL (8.4-25.7); Calc. Creatinine Clearance 70 mL/min (70-130); Carbon Dioxide 31 mmol/L (23-31); Chloride 98 mmol/L (98-107); Glucose 115 mg/dL (83-110); Magnesium 1.9 mg/dL (1.6-2.6); Phosphorus 5.2 mg/dL (2.3-4.7); Potassium 4.1 mmol/L (3.5-5.1); Sodium 136 mmol/L (136-145)
[2021-08-13] MEDS ORDERED: ceFAZolin Sodium/D5W 2 GM in Premix Bag 1 BAG IVPB SCH (07:45)
[2021-08-13] MEDS: Senokot S 8.6-50 MG TAB PO SCH ×2 (08:22→20:16)
[2021-08-13] MEDS: Polyethylene Glycol 3350 17 GM Packet PO SCH (08:22)
[2021-08-13] MEDS ORDERED: Non-Formulary Item 1 EACH (Glycopyrrolate/Formoterol Fum [Bevespi Aerosphere Inhaler] 10. INH SCH (09:00)
[2021-08-13] MEDS ORDERED: Amlodipine 5 MG TAB PO SCH (09:00)
[2021-08-13] MEDS: cloNIDine 0.1 MG TAB PO SCH ×2 (09:30→20:16)
[2021-08-13] MEDS: Famotidine/PF 20 mg/2ml Vial SLOW IVP SCH (09:31)
[2021-08-13] MEDS: Dexamethasone 4 MG TAB PO SCH ×3 (09:31→20:16)
[2021-08-13] MEDS: Amlodipine 5 MG TAB PO SCH (09:31)
[2021-08-13] MEDS ORDERED: Lidocaine 2% Jelly 5 ML TUBE ONE (12:24)
[2021-08-13] MEDS ORDERED: Fentanyl 100 MCG/2 ML VIAL ONE ×3 (12:24→14:56)
[2021-08-13] MEDS ORDERED: ceFAZolin Sodium (SDC) 2 GM/100 ML BAG ONE (12:41)
[2021-08-13] MEDS ORDERED: Hydrocortisone Sod Succ/PF 100 mg/2 ml Vial ONE (12:49)
[2021-08-13] MEDS ORDERED: Lidocaine 1% PF 5 ML VIAL ONE (12:53)
[2021-08-13] MEDS ORDERED: Rocuronium Bromide 10 MG/ML (10ML VIAL) ONE (12:53)
[2021-08-13] MEDS ORDERED: PHENYLEPHRINE-NS 100 MCG/ML 10 ML SYRINGE ONE (12:53)
[2021-08-13] MEDS ORDERED: Glycopyrrolate 0.2 MG/ML 5 ML SYRINGE ONE (12:53)
[2021-08-13] MEDS ORDERED: Ondansetron PF 4 MG/2 ML Vial ONE (12:53)
[2021-08-13] MEDS ORDERED: Dexamethasone 20 MG/5 ML VIAL ONE (12:53)
[2021-08-13] MEDS ORDERED: Propofol 1,000 MG/100 ML VIAL IV ONE (12:53)
[2021-08-13] MEDS ORDERED: Cepastat Lozenges 1 LOZ PO PRN (18:12)
[2021-08-13] MEDS ORDERED: TRANDOLAPRIL 4 MG PO SCH (21:00)
[2021-08-13] MEDS: CEFAZOLIN 2 GM, Admixture Fee 1 EACH in Sodium Chloride 0.9% 100 ML IVPB SCH (21:28)
[2021-08-14] MEDS: Acetaminophen 500 MG TAB PO SCH ×4 (02:27→20:17)
[2021-08-14 06:08] LABS: Band 6 % (5-11); Hemoglobin 10.9 g/dL (14.0-18.0); Lymphocytes 3 % (21-51); MDiff Complete? YES; Mean Corpuscular HGB CONC 33.3 g/dL (32.0-36.0); Mean Corpuscular Hemoglobin 33.9 pg (27.0-31.0); Mean Platelet Volume 6.3 fL (7.4-10.4); Monocytes 2 % (0-10); Neutrophil 89 % (42-75); Platelet Count 284 thou/uL (130-400); Platelet Morphology Comment Appears Adequate; RBC Distribution Width 13.7 % (11.5-14.5); Red Blood Cell (RBC) Count 3.21 mill/uL (4.70-6.10); White Blood Cell (WBC) Count 24.1 thou/uL (4.8-10.8)
[2021-08-14] MEDS: CEFAZOLIN 2 GM, Admixture Fee 1 EACH in Sodium Chloride 0.9% 100 ML IVPB SCH (06:19)
[2021-08-14 06:23] LABS: Anion Gap 10 mmol/L (10-20); BUN (Urea Nitrogen) 19 mg/dL (8.4-25.7); Calc. Creatinine Clearance 74 mL/min (70-130); Calcium 8.4 mg/dL (7.8-10.44); Carbon Dioxide 26 mmol/L (23-31); Chloride 101 mmol/L (98-107); Glucose 108 mg/dL (83-110); Magnesium 1.8 mg/dL (1.6-2.6); Phosphorus 2.9 mg/dL (2.3-4.7); Potassium 3.7 mmol/L (3.5-5.1); Sodium 133 mmol/L (136-145)
[2021-08-14] MEDS: TRANDOLAPRIL 4 MG PO SCH (08:21)
[2021-08-14] MEDS: Senokot S 8.6-50 MG TAB PO SCH ×2 (08:22→20:17)
[2021-08-14] MEDS: Dexamethasone 4 MG TAB PO SCH ×3 (08:22→20:17)
[2021-08-14] MEDS: Amlodipine 5 MG TAB PO SCH (08:23)
[2021-08-14] MEDS: cloNIDine 0.1 MG TAB PO SCH ×2 (08:24→20:16)
[2021-08-14] MEDS: Polyethylene Glycol 3350 17 GM Packet PO SCH (08:30)
[2021-08-14] MEDS ORDERED: Potassium Phosphate 30 MMOL, Magnesium Sulfate 2 GM in Sodium Chloride 0.9% 250 ML 250 ML IVPB SCH (09:00)
[2021-08-14] MEDS ORDERED: Tamsulosin HCl 0.4 MG CAP PO SCH (11:00)
[2021-08-14] MEDS ORDERED: Furosemide 40 MG/4 ML VIAL SLOW IVP SCH (11:30)
[2021-08-14] MEDS ORDERED: LATANOPROSTENE BUNOD TOP SCH (12:15)
[2021-08-14] MEDS: Aspirin 81 mg Enteric Coated Tablet PO SCH (20:17)
[2021-08-15] MEDS: Acetaminophen 500 MG TAB PO SCH ×3 (03:25→14:54)
[2021-08-15 04:39] LABS: #Lymphocytes 0.7 thou/uL (1.20-3.40); #Monocytes 1.1 thou/uL (0.11-0.59); #Neutrophils 19.2 thou/uL (1.40-6.50); %Eosinophils 0.1 % (0.0-10.0); %Lymphocytes 3.5 % (21.0-51.0); %Monocytes 5.2 % (0.0-10.0); %Neutrophils 91.2 % (42.0-75.0); Hemoglobin 10.6 g/dL (14.0-18.0); Mean Corpuscular HGB CONC 32.8 g/dL (32.0-36.0); Mean Corpuscular Hemoglobin 33.8 pg (27.0-31.0); Mean Platelet Volume 6.5 fL (7.4-10.4); Platelet Count 279 thou/uL (130-400); RBC Distribution Width 13.8 % (11.5-14.5); Red Blood Cell (RBC) Count 3.12 mill/uL (4.70-6.10)
[2021-08-15 04:42] LABS: Anion Gap 10 mmol/L (10-20); BUN (Urea Nitrogen) 23 mg/dL (8.4-25.7); Calc. Creatinine Clearance 67 mL/min (70-130); Calcium 8.5 mg/dL (7.8-10.44); Carbon Dioxide 29 mmol/L (23-31); Chloride 99 mmol/L (98-107); Glucose 117 mg/dL (83-110); Magnesium 2.1 mg/dL (1.6-2.6); Phosphorus 2.5 mg/dL (2.3-4.7); Potassium 4.1 mmol/L (3.5-5.1); Sodium 134 mmol/L (136-145)
[2021-08-15] MEDS: Aspirin 81 mg Enteric Coated Tablet PO SCH (09:00)
[2021-08-15] MEDS ORDERED: Tamsulosin HCl 0.4 MG CAP PO SCH (09:00)
[2021-08-15] MEDS: Amlodipine 5 MG TAB PO SCH (09:00)
[2021-08-15] MEDS: Senokot S 8.6-50 MG TAB PO SCH (09:00)
[2021-08-15] MEDS: Dexamethasone 4 MG TAB PO SCH ×2 (09:01→14:54)
[2021-08-15] MEDS: Polyethylene Glycol 3350 17 GM Packet PO SCH (09:01)
[2021-08-15] MEDS: cloNIDine 0.1 MG TAB PO SCH (09:01)
[2021-08-15] MEDS ORDERED: traMADol HCl 50 MG TAB PO PRN (09:28)
[2021-08-15] MEDS ORDERED: guaiFENesin/Codeine 200 mg/20 mg 10 ml Cup PO SCH (09:30)
[2021-08-15] MEDS ORDERED: traMADol HCl 50 MG TAB PO SCH (09:30)
[2021-08-15 12:57] VITALS: BP 145/57; TEMP 97.7
[2021-08-15] MEDS: TRANDOLAPRIL 4 MG PO SCH (14:54)
== END 2021-08-15 16:05 | DRG 481 ==
LOC: ERS 18:20 → SURG A 19:57
PROVIDERS: ADMIT Surgery; ATTEND Surgery
PROC: 0QS704Z Reposition Left Upper Femur with Internal Fixation Device, Open Approach (ICD-10-PCS; principal; 2021-08-13)
DX: S72.142A Displaced intertrochanteric fracture of left femur, initial encounter for closed fracture (principal); E87.1 Hypo-osmolality and hyponatremia; E78.00 Pure hypercholesterolemia, unspecified; E78.5 Hyperlipidemia, unspecified; J44.9 Chronic obstructive pulmonary disease, unspecified; F17.210 Nicotine dependence, cigarettes, uncomplicated; W18.30XA Fall on same level, unspecified, initial encounter; K21.9 Gastro-esophageal reflux disease without esophagitis; N40.0 Benign prostatic hyperplasia without lower urinary tract symptoms; Z90.49 Acquired absence of other specified parts of digestive tract; Z95.0 Presence of cardiac pacemaker; Y92.009 Unspecified place in unspecified non-institutional (private) residence as the place of occurrence of the external cause; I25.2 Old myocardial infarction; Z79.899 Other long term (current) drug therapy; Z98.890 Other specified postprocedural states
CPT/HCPCS: 36415; 70450; 71045; 76000; 80048; 80053; 81003; 83735; 84100; 85025; 85027; 85610; 85730; 93005; 93010; 94640; C1713; G0390; J0690; J1100; J1720; J1940; J2405; J2704; J3010; J3475; J3490; J7050; J7620; J8540; S0028; U0003; U0005

== ENCOUNTER 2021-09-06 07:48 | Inpatient (IN) | payer MEDICARE, OTHER ==
[2021-09-06] MEDS ORDERED: Cefepime 2 GM VIAL ONE (08:06)
[2021-09-06] MEDS ORDERED: Vancomycin 1 GM/200 ML BAG ONE (08:06)
[2021-09-06 08:17] LABS: #Lymphocytes 0.9 thou/uL (1.20-3.40); #Monocytes 0.8 thou/uL (0.11-0.59); #Neutrophils 13.6 thou/uL (1.40-6.50); %Basophils 0.1 % (0.0-1.0); %Eosinophils 0.1 % (0.0-10.0); %Lymphocytes 5.6 % (21.0-51.0); %Neutrophils 89.3 % (42.0-75.0); Hemoglobin 10.9 g/dL (14.0-18.0); Mean Corpuscular HGB CONC 32.2 g/dL (32.0-36.0); Mean Corpuscular Hemoglobin 33.5 pg (27.0-31.0); Mean Platelet Volume 6.4 fL (7.4-10.4); Platelet Count 328 thou/uL (130-400); RBC Distribution Width 14.7 % (11.5-14.5); Red Blood Cell (RBC) Count 3.26 mill/uL (4.70-6.10); White Blood Cell (WBC) Count 15.2 thou/uL (4.8-10.8)
[2021-09-06 08:30] LABS: Bilirubin Negative (Negative); Blood, Urine Negative (Negative); Clarity Clear (Clear); Glucose, Urine (Dipstick) Normal (Negative); Ketone, Urine Negative (Negative); Leukocyte Negative Leu/uL (Negative); Nitrite Negative (Negative); Protein, Urine (Dipstick) 20 mg/dL (Neg-Trace); Specific Gravity, Urine 1.028 (1.002-1.036)
[2021-09-06 08:38] LABS: ALT (SGPT) 50 U/L (8-55); AST (SGOT) 27 U/L (5-34); Albumin 2.5 g/dL (3.4-4.8); Alkaline Phosphatase 517 U/L (40-110); Anion Gap 17 mmol/L (10-20); BUN (Urea Nitrogen) 26 mg/dL (8.4-25.7); Bilirubin, Total 0.8 mg/dL (0.2-1.2); CK (CPK) 27 U/L (30-200); Calc. Creatinine Clearance 0 mL/min (70-130); Calcium 8.4 mg/dL (7.8-10.44); Carbon Dioxide 21 mmol/L (23-31); Chloride 101 mmol/L (98-107); Globulin 3.3 g/dL (2.4-3.5); Glucose 98 mg/dL (83-110); Magnesium 1.6 mg/dL (1.6-2.6); Protein, Total 5.8 g/dL (5.8-8.1); Sodium 135 mmol/L (136-145)
[2021-09-06 09:00] LABS: CKMB 1.7 ng/mL (0-6.6)
[2021-09-06 09:29] LABS: Prothrombin Time 13.5 sec (12.0-14.7)
[2021-09-06] MEDS ORDERED: Sodium Chloride 0.9% 1,000 ML IV SCH (10:00)
[2021-09-06] MEDS ORDERED: Amiodarone 150 MG in Dextrose 5% in Water 100 ML IVPB SCH (10:00)
[2021-09-06] MEDS ORDERED: Vancomycin 1 GM in Premix Bag 1 BAG IVPB SCH (10:00)
[2021-09-06] MEDS ORDERED: Cefepime 2 GM in Sodium Chloride 0.9% 100 ML IVPB SCH (10:15)
[2021-09-06] MEDS ORDERED: Sodium Chloride 0.9% 500 ML IV SCH (10:15)
[2021-09-06] MEDS ORDERED: Magnesium 2 GM/50 ML BAG (IN WATER) ONE (10:27)
[2021-09-06 11:30] LABS: Lactic Acid 2.8 mmol/L (0.5-2.2)
[2021-09-06 13:36] LABS: SARS-CoV-2 NAA Rapid Test Not Detected (NotDetected)
[2021-09-06 13:56] LABS: Troponin I 0.157 ng/mL (< 0.028)
[2021-09-06] MEDS ORDERED: Amiodarone 450 MG, Admixture Fee 1 EACH in Dextrose 5% in Water 250 ML IVPB SCH (17:30)
[2021-09-06] MEDS ORDERED: Amiodarone In Dextrose 200 ML IVPB SCH (17:30)
[2021-09-06] MEDS: Amiodarone 450 MG, Admixture Fee 1 EACH in Dextrose 5% in Water 250 ML IVPB SCH (17:38)
[2021-09-06 17:59] LABS: Troponin I 0.186 ng/mL (< 0.028)
[2021-09-06] MEDS ORDERED: Benzonatate 100 MG CAP PO PRN (18:10)
[2021-09-06] MEDS: Cefepime 2 GM in Sodium Chloride 0.9% 100 ML IVPB SCH (19:03)
[2021-09-06] MEDS: Budesonide 0.5 MG/2 ML NEB NEB SCH (19:29)
[2021-09-06] MEDS ORDERED: Digoxin 0.5 MG/2 ML AMP SLOW IVP SCH (20:00)
[2021-09-06] MEDS: Ondansetron ODT 4 MG TAB PO SCH (20:11)
[2021-09-06] MEDS: Atorvastatin Calcium 10 MG TAB PO SCH (20:11)
[2021-09-06] MEDS: Dextrose 5 % And 0.9 % NaCl 1,000 ML IV SCH (21:00)
[2021-09-06] MEDS: Dexamethasone 4 MG TAB PO SCH (22:20)
[2021-09-06] MEDS: Acetaminophen 325 MG TAB PO PRN (22:23)
[2021-09-07] MEDS: Vancomycin HCl 750 MG in Sodium Chloride 0.9% 250 ML 250 ML IVPB SCH ×2 (00:12→14:22)
[2021-09-07] MEDS: Amiodarone 450 MG, Admixture Fee 1 EACH in Dextrose 5% in Water 250 ML IVPB SCH ×2 (00:52→17:21)
[2021-09-07] MEDS: Cefepime 2 GM in Sodium Chloride 0.9% 100 ML IVPB SCH ×3 (02:25→17:02)
[2021-09-07 03:14] LABS: #Lymphocytes 0.6 thou/uL (1.20-3.40); #Monocytes 0.8 thou/uL (0.11-0.59); #Neutrophils 15.3 thou/uL (1.40-6.50); %Basophils 0.2 % (0.0-1.0); %Eosinophils 0.3 % (0.0-10.0); %Lymphocytes 3.7 % (21.0-51.0); %Monocytes 4.7 % (0.0-10.0); Hemoglobin 10.9 g/dL (14.0-18.0); Mean Corpuscular HGB CONC 32.3 g/dL (32.0-36.0); Mean Corpuscular Hemoglobin 34.1 pg (27.0-31.0); Mean Platelet Volume 6.3 fL (7.4-10.4); Platelet Count 310 thou/uL (130-400); RBC Distribution Width 14.7 % (11.5-14.5); Red Blood Cell (RBC) Count 3.18 mill/uL (4.70-6.10); White Blood Cell (WBC) Count 16.8 thou/uL (4.8-10.8)
[2021-09-07 03:38] LABS: ALT (SGPT) 49 U/L (8-55); AST (SGOT) 31 U/L (5-34); Albumin 2.3 g/dL (3.4-4.8); Alkaline Phosphatase 485 U/L (40-110); Anion Gap 14 mmol/L (10-20); BUN (Urea Nitrogen) 26 mg/dL (8.4-25.7); Bilirubin, Direct 0.4 mg/dL (0.1-0.3); Bilirubin, Total 0.6 mg/dL (0.2-1.2); Calc. Creatinine Clearance 66 mL/min (70-130); Calcium 8.1 mg/dL (7.8-10.44); Carbon Dioxide 20 mmol/L (23-31); Chloride 103 mmol/L (98-107); Glucose 157 mg/dL (83-110); Protein, Total 5.5 g/dL (5.8-8.1); Sodium 133 mmol/L (136-145)
[2021-09-07] MEDS: Dexamethasone 4 MG TAB PO SCH ×3 (06:11→21:38)
[2021-09-07] MEDS: Dextrose 5 % And 0.9 % NaCl 1,000 ML IV SCH ×3 (06:11→17:02)
[2021-09-07] MEDS: Budesonide 0.5 MG/2 ML NEB NEB SCH ×2 (07:45→19:29)
[2021-09-07] MEDS: Ondansetron ODT 4 MG TAB PO SCH ×3 (08:23→21:39)
[2021-09-07] MEDS: Tamsulosin HCl 0.4 MG CAP PO SCH (08:23)
[2021-09-07] MEDS: Aspirin 81 mg Enteric Coated Tablet PO SCH (08:23)
[2021-09-07] MEDS: Atorvastatin Calcium 10 MG TAB PO SCH (21:38)
[2021-09-07 23:27] LABS: Vancomycin, Trough 10.3 ug/mL
[2021-09-08] MEDS: Dextrose 5 % And 0.9 % NaCl 1,000 ML IV SCH ×3 (00:03→23:04)
[2021-09-08] MEDS: VANCOMYCIN 1.25 GM/250 ML BAG 1.25 GM in Premix Bag 1 BAG IVPB SCH ×3 (00:16→23:36)
[2021-09-08] MEDS: Cefepime 2 GM in Sodium Chloride 0.9% 100 ML IVPB SCH ×3 (02:32→18:31)
[2021-09-08 03:44] LABS: #Lymphocytes 0.4 thou/uL (1.20-3.40); #Monocytes 0.7 thou/uL (0.11-0.59); #Neutrophils 16.5 thou/uL (1.40-6.50); %Eosinophils 0.2 % (0.0-10.0); %Lymphocytes 2.1 % (21.0-51.0); %Monocytes 4.1 % (0.0-10.0); %Neutrophils 93.6 % (42.0-75.0); Hemoglobin 11.3 g/dL (14.0-18.0); Mean Corpuscular Hemoglobin 33.7 pg (27.0-31.0); Mean Platelet Volume 6.3 fL (7.4-10.4); Platelet Count 298 thou/uL (130-400); RBC Distribution Width 14.8 % (11.5-14.5); Red Blood Cell (RBC) Count 3.35 mill/uL (4.70-6.10); White Blood Cell (WBC) Count 17.6 thou/uL (4.8-10.8)
[2021-09-08 04:07] LABS: Anion Gap 10 mmol/L (10-20); BUN (Urea Nitrogen) 24 mg/dL (8.4-25.7); Calc. Creatinine Clearance 67 mL/min (70-130); Carbon Dioxide 21 mmol/L (23-31); Chloride 106 mmol/L (98-107); Glucose 136 mg/dL (83-110); Sodium 133 mmol/L (136-145)
[2021-09-08] MEDS: Dexamethasone 4 MG TAB PO SCH ×3 (06:17→21:18)
[2021-09-08] MEDS: Amiodarone 450 MG, Admixture Fee 1 EACH in Dextrose 5% in Water 250 ML IVPB SCH ×2 (06:21→23:11)
[2021-09-08] MEDS: Aspirin 81 mg Enteric Coated Tablet PO SCH (07:55)
[2021-09-08] MEDS: Ondansetron ODT 4 MG TAB PO SCH ×3 (07:56→21:08)
[2021-09-08] MEDS: Tamsulosin HCl 0.4 MG CAP PO SCH (07:56)
[2021-09-08] MEDS: Budesonide 0.5 MG/2 ML NEB NEB SCH ×2 (09:02→18:46)
[2021-09-08] MEDS: Nystatin 500,000 UNITS/5 ML UDCUP SSW SCH ×4 (11:24→21:10)
[2021-09-08] MEDS ORDERED: methylPREDNISolone Sod Succ/PF 125 MG/2 ML VIAL IVP SCH (16:19)
[2021-09-08] MEDS: Atorvastatin Calcium 10 MG TAB PO SCH ×2 (21:11→21:19)
[2021-09-09] MEDS: Cefepime 2 GM in Sodium Chloride 0.9% 100 ML IVPB SCH ×3 (03:36→17:59)
[2021-09-09 04:04] LABS: Anion Gap 11 mmol/L (10-20); BUN (Urea Nitrogen) 23 mg/dL (8.4-25.7); Calc. Creatinine Clearance 63 mL/min (70-130); Carbon Dioxide 22 mmol/L (23-31); Chloride 107 mmol/L (98-107); Glucose 109 mg/dL (83-110); Potassium 3.7 mmol/L (3.5-5.1); Sodium 136 mmol/L (136-145)
[2021-09-09 04:28] LABS: Anisocytosis SLIGHT = 6-15 cells (100X) (0-5/hpf); Band 9 % (5-11); Hemoglobin 10.9 g/dL (14.0-18.0); Hypochromia SLIGHT = 6-15 cells (100X) (0-5/hpf); Lymphocytes 1 % (21-51); MDiff Complete? YES; Mean Corpuscular Hemoglobin 32.3 pg (27.0-31.0); Mean Platelet Volume 6.3 fL (7.4-10.4); Monocytes 4 % (0-10); Myelocyte 1 % (0-0); Neutrophil 85 % (42-75); Platelet Count 286 thou/uL (130-400); Platelet Morphology Comment Appears Adequate; Polychromasia SLIGHT = 2-3 cells (100X) (0-2/hpf); RBC Distribution Width 14.8 % (11.5-14.5); Red Blood Cell (RBC) Count 3.38 mill/uL (4.70-6.10); White Blood Cell (WBC) Count 25.4 thou/uL (4.8-10.8)
[2021-09-09] MEDS: Dexamethasone 4 MG TAB PO SCH ×3 (06:49→22:51)
[2021-09-09] MEDS: Budesonide 0.5 MG/2 ML NEB NEB SCH ×2 (07:23→19:00)
[2021-09-09] MEDS: Dextrose 5 % And 0.9 % NaCl 1,000 ML IV SCH (08:30)
[2021-09-09] MEDS: Acetaminophen 325 MG TAB PO PRN (10:24)
[2021-09-09] MEDS: Tamsulosin HCl 0.4 MG CAP PO SCH (10:24)
[2021-09-09] MEDS: Ondansetron ODT 4 MG TAB PO SCH ×3 (10:24→22:49)
[2021-09-09] MEDS: Aspirin 81 mg Enteric Coated Tablet PO SCH (10:24)
[2021-09-09] MEDS: Nystatin 500,000 UNITS/5 ML UDCUP SSW SCH ×4 (10:27→21:52)
[2021-09-09 11:35] LABS: Vancomycin, Trough 26.7 ug/mL
[2021-09-09] MEDS ORDERED: Bisacodyl 10 MG SUPP PR SCH (11:45)
[2021-09-09] MEDS: VANCOMYCIN 1.25 GM/250 ML BAG 1.25 GM in Premix Bag 1 BAG IVPB SCH (11:46)
[2021-09-09 14:00] VITALS: BMI 21.3
[2021-09-09] MEDS ORDERED: Milk Of Magnesia 30 ML UDCUP PO SCH (15:00)
[2021-09-09] MEDS ORDERED: Aluminum & Magnesium Hydroxide 60 ML, Lidocaine 2% Viscous Solution 30 ML, diphenhydrAM... SSW PRN (17:33)
[2021-09-09] MEDS: Atorvastatin Calcium 10 MG TAB PO SCH (21:52)
[2021-09-10] MEDS: Cefepime 2 GM in Sodium Chloride 0.9% 100 ML IVPB SCH ×2 (03:09→11:31)
[2021-09-10 03:38] LABS: Hemoglobin 11.4 g/dL (14.0-18.0); Mean Corpuscular HGB CONC 33.2 g/dL (32.0-36.0); Mean Corpuscular Hemoglobin 34.9 pg (27.0-31.0); Mean Platelet Volume 6.4 fL (7.4-10.4); Platelet Count 255 thou/uL (130-400); RBC Distribution Width 15.2 % (11.5-14.5); Red Blood Cell (RBC) Count 3.25 mill/uL (4.70-6.10); White Blood Cell (WBC) Count 27.8 thou/uL (4.8-10.8)
[2021-09-10 03:54] LABS: Anion Gap 12 mmol/L (10-20); BUN (Urea Nitrogen) 25 mg/dL (8.4-25.7); Calc. Creatinine Clearance 64 mL/min (70-130); Calcium 8.3 mg/dL (7.8-10.44); Carbon Dioxide 20 mmol/L (23-31); Chloride 109 mmol/L (98-107); Glucose 214 mg/dL (83-110); Potassium 3.5 mmol/L (3.5-5.1); Sodium 137 mmol/L (136-145)
[2021-09-10 04:39] LABS: Anisocytosis SLIGHT = 6-15 cells (100X) (0-5/hpf); Band 11 % (5-11); Lymphocytes 2 % (21-51); MDiff Complete? YES; Macrocytosis MODERATE=16-30 cells (100X) (0-5/hpf); Monocytes 2 % (0-10); Myelocyte 2 % (0-0); Neutrophil 83 % (42-75); Platelet Morphology Comment Appears Adequate
[2021-09-10] MEDS: Amiodarone 450 MG, Admixture Fee 1 EACH in Dextrose 5% in Water 250 ML IVPB SCH (06:08)
[2021-09-10] MEDS: Acetaminophen 325 MG TAB PO PRN (07:25)
[2021-09-10] MEDS: Aspirin 81 mg Enteric Coated Tablet PO SCH (07:25)
[2021-09-10] MEDS: Tamsulosin HCl 0.4 MG CAP PO SCH (07:26)
[2021-09-10] MEDS: Milk Of Magnesia 30 ML UDCUP PO SCH (07:26)
[2021-09-10] MEDS: Nystatin 500,000 UNITS/5 ML UDCUP SSW SCH ×2 (07:26→11:23)
[2021-09-10] MEDS: Dextrose 5 % And 0.9 % NaCl 1,000 ML IV SCH ×2 (07:27→15:56)
[2021-09-10] MEDS: Dexamethasone 4 MG TAB PO SCH ×2 (07:29→15:58)
[2021-09-10] MEDS: Budesonide 0.5 MG/2 ML NEB NEB SCH ×2 (07:37→19:10)
[2021-09-10] MEDS: Ondansetron ODT 4 MG TAB PO SCH ×3 (07:53→22:18)
[2021-09-10 11:57] VITALS: BP 145/59
[2021-09-10] MEDS ORDERED: Vancomycin HCl 750 MG in Sodium Chloride 0.9% 250 ML 250 ML IVPB SCH (12:00)
[2021-09-10] MEDS: Morphine 4 MG/ML VIAL SLOW IVP PRN (19:42)
[2021-09-11] MEDS: Dextrose 5 % And 0.9 % NaCl 1,000 ML IV SCH ×2 (02:11→15:21)
[2021-09-11] MEDS: Budesonide 0.5 MG/2 ML NEB NEB SCH (08:04)
[2021-09-11] MEDS: Milk Of Magnesia 30 ML UDCUP PO SCH (09:30)
[2021-09-11] MEDS: Ondansetron ODT 4 MG TAB PO SCH ×2 (09:31→15:19)
[2021-09-11] MEDS ORDERED: Atropine Sulfate 1% Ophth Soln 5 ml Bottle PO PRN (14:54)
[2021-09-11] MEDS ORDERED: Scopolamine 1.5 mg/72 hour Patch TD SCH (15:00)
[2021-09-11] MEDS: Morphine 4 MG/ML VIAL SLOW IVP PRN (15:15)
[2021-09-11 16:52] VITALS: TEMP 97.4
== END 2021-09-11 18:13 | disposition hospice, inpatient (51) | DRG 871 ==
LOC: ERS 07:48 → IMCU/EMU 12:45
PROVIDERS: ADMIT Specialist; ATTEND Specialist
PROC: 0D9670Z Drainage of Stomach with Drainage Device, Via Natural or Artificial Opening (ICD-10-PCS; principal; 2021-09-08)
DX: A41.9 Sepsis, unspecified organism (principal); J18.9 Pneumonia, unspecified organism; J44.0 Chronic obstructive pulmonary disease with (acute) lower respiratory infection; Z66 Do not resuscitate; Z20.822 Contact with and (suspected) exposure to COVID-19; Z51.5 Encounter for palliative care; I48.91 Unspecified atrial fibrillation; I44.7 Left bundle-branch block, unspecified; E11.9 Type 2 diabetes mellitus without complications; R79.89 Other specified abnormal findings of blood chemistry; D64.9 Anemia, unspecified; K21.9 Gastro-esophageal reflux disease without esophagitis; E78.5 Hyperlipidemia, unspecified; E78.00 Pure hypercholesterolemia, unspecified; I10 Essential (primary) hypertension; Z79.82 Long term (current) use of aspirin; Z79.899 Other long term (current) drug therapy; Z91.81 History of falling; Z85.46 Personal history of malignant neoplasm of prostate; Z92.3 Personal history of irradiation; Z90.49 Acquired absence of other specified parts of digestive tract; Z95.0 Presence of cardiac pacemaker; Z87.891 Personal history of nicotine dependence; D49.6 Neoplasm of unspecified behavior of brain
CPT/HCPCS: 36415; 71045; 74018; 80048; 80053; 80076; 80202; 81003; 82550; 82553; 83605; 83735; 83880; 84443; 84484; 85025; 85610; 85730; 87040; 87081; 87086; 87430; 93005; 93306; 94640; 94760; 96365; 96375; J0282; J0692; J1160; J1956; J2270; J3370; J3475; J3490; J7042; J7050; J7070; J7620; J7626; J8540; Q0162; U0002

== ENCOUNTER 2021-09-11 18:25 | Inpatient (IN) | payer OTHER ==
[2021-09-11] MEDS ORDERED: Morphine 4 MG/ML VIAL SLOW IVP PRN (18:43)
[2021-09-11] MEDS ORDERED: Lorazepam 2 MG/ML VIAL SLOW IVP PRN (18:45)
[2021-09-11] MEDS ORDERED: Ondansetron PF 4 MG/2 ML Vial IVP PRN (18:46)
[2021-09-11] MEDS ORDERED: Acetaminophen 650 MG Suppository PR PRN (18:46)
[2021-09-11] MEDS ORDERED: Hyoscyamine Sulfate SL 0.125 mg Tablet SL PRN (18:48)
[2021-09-11] MEDS ORDERED: Scopolamine 1.5 mg/72 hour Patch TOP SCH (20:00)
[2021-09-11 20:09] VITALS: BMI 22.4
[2021-09-11 20:42] VITALS: BP 168/70; TEMP 97.6
[2021-09-11] MEDS ORDERED: Nystatin 500,000 UNITS/5 ML UDCUP SSW SCH (21:00)
[2021-09-11] MEDS ORDERED: Morphine 4 MG/ML VIAL SLOW IVP SCH (22:00)
== END 2021-09-12 02:32 | disposition expired | DRG 951 ==
LOC: IMCU/EMU 18:25 → T4-B 20:57
PROVIDERS: ADMIT Internal Medicine Nephrology; ATTEND Internal Medicine Nephrology
DX: Z51.5 Encounter for palliative care (principal); J18.9 Pneumonia, unspecified organism; A41.9 Sepsis, unspecified organism; J44.0 Chronic obstructive pulmonary disease with (acute) lower respiratory infection; I24.8 Other forms of acute ischemic heart disease; I48.91 Unspecified atrial fibrillation; G93.89 Other specified disorders of brain; E11.9 Type 2 diabetes mellitus without complications; M19.90 Unspecified osteoarthritis, unspecified site; K21.9 Gastro-esophageal reflux disease without esophagitis; E78.5 Hyperlipidemia, unspecified; I10 Essential (primary) hypertension; N40.0 Benign prostatic hyperplasia without lower urinary tract symptoms; R13.10 Dysphagia, unspecified; Z95.0 Presence of cardiac pacemaker; Z85.46 Personal history of malignant neoplasm of prostate; I25.2 Old myocardial infarction
CPT/HCPCS: J2060; J2270